=== PATIENT | female | born 1975 | race Caucasian/White ===

== ENCOUNTER 2018-11-10 20:27 | Emergency (ER) | payer OTHER ==
[~2018-11-10] VITALS: Ht 165.1 cm; Wt 86.2 kg
[~2018-11-10 20:27] MED LIST: KETO10TA2 PO
[2018-11-10] MEDS ORDERED: ATENOLOL25 MG (20:46)
== END 2018-11-10 23:47 | disposition home or self-care (01) ==
LOC: ER 20:27
DX: K62.5 Hemorrhage of anus and rectum (principal); N39.0 Urinary tract infection, site not specified; B96.29 Other Escherichia coli [E. coli] as the cause of diseases classified elsewhere

== ENCOUNTER 2019-02-21 07:08 | Emergency (ER) | payer OTHER ==
[~2019-02-21] VITALS: Ht 160 cm; Wt 86.2 kg
[~2019-02-21 07:08] MED LIST changes: +ATENOLOL25 MG
== END 2019-02-21 11:49 | disposition home or self-care (01) ==
LOC: ER 07:08
DX: H66.92 Otitis media, unspecified, left ear (principal)